=== PATIENT | female | born 1990 ===

== ENCOUNTER 2017-07-06 11:35 | Emergency (ER) | payer MEDICAID ==
[2017-07-06 11:46] VITALS: BP 108/66; PULSE 69; RESP 18; TEMP 98.3; O2SAT 100
--- NOTE | 2017-07-06 14:06 | C.PDOC ---
History Of Present Illness 26 y/o female presents to the ED complaining of a left ingrown toenail for the last 2-3 weeks. Patient has been soaking it in warm water with minimal relief. Pain is persistent, prompting her to come in for evaluation. She denies any drainage, fever, or chills. Time Seen by Provider: 07/06/17 13:08 Chief Complaint (Nursing): Lower Extremity Problem/Injury History Per: Patient History/Exam Limitations: no limitations Onset/Duration Of Symptoms: Days Current Symptoms Are (Timing): Still Present Past Medical History Reviewed: Historical Data, Nursing Documentation, Vital Signs Vital Signs: Last Vital Signs Temp 98.3 F 07/06/17 11:44 Pulse 69 07/06/17 11:44 Resp 18 07/06/17 11:44 BP 108/66 07/06/17 11:44 Pulse Ox 100 07/06/17 14:06 - Medical History PMH: No Chronic Diseases Other Surgeries: tubal ligation Family History: States: No Known Family Hx - Social History Hx Alcohol Use: No Hx Substance Use: No - Immunization History Hx Tetanus Toxoid Vaccination: Yes Hx Influenza Vaccination: Yes Hx Pneumococcal Vaccination: No Review Of Systems Except As Marked, All Systems Reviewed And Found Negative. Constitutional: Negative for: Fever, Chills Musculoskeletal: Positive for: Other (left ingrown toenail) Physical Exam - Physical Exam Appears: Non-toxic, No Acute Distress Skin: Warm, Dry Extremity: Capillary Refill (< 2 sec), No Deformity, Swelling (mild erythema and swelling around the medial part of left toenail, no drainage) Pulses: Left Dorsalis Pedis: Normal, Right Dorsalis Pedis: Normal ED Course And Treatment O2 Sat by Pulse Oximetry: 100 (RA) Pulse Ox Interpretation: Normal Medical Decision Making Medical Decision Making: Impression: Left ingrowing toenail Plan: Patient given initial dose of Keflex. Referred to podiatry clinic. Disposition Counseled Patient/Family Regarding: Diagnosis, Need For Followup, Rx Given - Disposition Referrals: Podiatry Clinic [Outside] [facility] [Outside] Disposition: HOME/ ROUTINE Disposition Time: 14:04 Condition: STABLE Additional Instructions: Follow up in Podiatry Clinic within 2-3 days. Return to ED if feel worse. 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 - Scribe Statement The provider has reviewed the documentation as recorded by the Scribe (Marisela Ford) All medical record entries made by the Scribe were at my direction and personally dictated by me. I have reviewed the chart and agree that the record accurately reflects my personal performance of the history, physical exam, medical decision making, and the department course for this patient. I have also personally directed, reviewed, and agree with the discharge instructions and disposition.
== END 2017-07-06 14:12 | disposition home or self-care (01) ==
LOC: C.ER 11:35
DX: L60.0 Ingrowing nail (principal)

== ENCOUNTER 2017-07-22 20:24 | Emergency (ER) | payer MEDICAID ==
--- NOTE | 2017-07-22 20:57 | C.PDOC ---
History Of Present Illness Patient sent to the ER by PMD for having a low hemoglobin in her recent blood work. Patient reports she has had a headache and some dizziness. Patient is currently speaking in complete sentences; denies chest pain, palpitations, or SOB. Time Seen by Provider: 07/22/17 20:56 Chief Complaint (Nursing): Abnormal Labs History Per: Patient History/Exam Limitations: no limitations Onset/Duration Of Symptoms: Hrs Current Symptoms Are (Timing): Still Present Severity: Moderate Pain Scale Rating Of: 4 Recent travel outside of the [place]: No Past Medical History Reviewed: Historical Data, Nursing Documentation, Vital Signs Vital Signs: Last Vital Signs Temp 98.4 F 07/22/17 20:34 Pulse 72 07/22/17 20:34 Resp 16 07/22/17 20:34 BP 118/81 07/22/17 20:34 Pulse Ox 100 07/22/17 21:08 Family History: States: No Known Family Hx - Social History Hx Alcohol Use: No Hx Substance Use: No - Immunization History Hx Tetanus Toxoid Vaccination: Yes Hx Influenza Vaccination: Yes Hx Pneumococcal Vaccination: No Review Of Systems Constitutional: Negative for: Fever, Chills Cardiovascular: Negative for: Chest Pain, Palpitations Respiratory: Negative for: Shortness of Breath Neurological: Positive for: Headache, Dizziness Physical Exam - Physical Exam Appears: Non-toxic, Other (Morbidly obese) Skin: Warm, Dry Head: Normacephalic Oral Mucosa: Moist Chest: Symmetrical, No Tenderness Cardiovascular: Rhythm Regular Respiratory: No Rales, No Rhonchi, No Wheezing Gastrointestinal/Abdominal: Soft, No Tenderness Neurological/Psych: Oriented x3 ED Course And Treatment - Laboratory Results Result Diagrams: 07/22/17 21:00 07/22/17 21:00 O2 Sat by Pulse Oximetry: 100 (Room air) Pulse Ox Interpretation: Normal Progress Note: Blood work and urinalysis ordered. Disposition Counseled Patient/Family Regarding: Studies Performed, Diagnosis, Need For Followup - Disposition Disposition: HOME/ ROUTINE Disposition Time: 20:56 Condition: FAIR Additional Instructions: Please follow up with your doctor Instructions: Anemia Caused by Low Iron, Adult (DC) Forms: [facility] (Zambian) - Clinical Impression Clinical Impression: Anemia - Scribe Statement The provider has reviewed the documentation as recorded by the Scribemanuel Costa All medical record entries made by the Scribe were at my direction and personally dictated by me. I have reviewed the chart and agree that the record accurately reflects my personal performance of the history, physical exam, medical decision making, and the department course for this patient. I have also personally directed, reviewed, and agree with the discharge instructions and disposition.
[2017-07-22 21:03] LABS: SQUAMOUS EPITHIAL 9 /hpf (0-5); URINE BACTERIA OCC (<OCC); URINE BILIRUBIN NEGATIVE (NEGATIVE); URINE BLOOD NEGATIVE (NEGATIVE); URINE CLARITY Hazy (Clear); URINE COLOR Yellow (YELLOW); URINE GLUCOSE (UA) NORMAL (Normal); URINE LEUKOCYTE ESTERASE TRACE Leu/uL (Negative); URINE PROTEIN NEGATIVE (NEGATIVE); URINE UROBILINOGEN NORMAL mg/dL (0.2-1.0)
[2017-07-22 21:16] LABS: BASO % 0.4 % (0.0-2.0); EOS # 0.1 K/uL (0.0-0.7); EOS % 1.7 % (0.0-4.0); HEMOGLOBIN 10.5 g/dL (11.0-16.0); LYMPH # 2.1 K/uL (1.0-4.3); LYMPH % 24.8 % (20.0-40.0); MEAN CELL VOLUME 70.8 fL (81.0-99.0); MEAN CORPUSCULAR HEMOGLOBIN 22.8 pg (27.0-31.0); MEAN CORPUSCULAR HGB CONC 32.2 g/dL (33.0-37.0); MEAN PLATELET VOLUME 9.8 fL (7.2-11.7); MONO # 0.7 K/uL (0.0-0.8); MONO % 7.8 % (0.0-10.0); NEUT # 5.5 K/uL (1.8-7.0); NEUT % 65.3 % (50.0-75.0); RBC 4.62 Mil/uL (3.80-5.20); WHITE BLOOD COUNT 8.4 K/uL (4.8-10.8)
[2017-07-22 21:24] LABS: INR 1.1; PROTHROMBIN TIME 11.6 SECONDS (9.7-12.2)
[2017-07-22 21:29] LABS: ALB/GLOB RATIO 1.2 (1.0-2.1); ALBUMIN 4.1 g/dL (3.5-5.0); ALT/SGPT 126 U/L (9-52); AST/SGOT 62 U/L (14-36); BLOOD UREA NITROGEN 11 mg/dL (7-17); CALCIUM 9.3 mg/dl (8.6-10.4); GFR AFRICAN-AMERICAN > 60; GFR NON-AFRICAN AMERICAN > 60
[2017-07-22 21:51] VITALS: BP 136/74; PULSE 78; RESP 18; TEMP 98; O2SAT 98
== END 2017-07-22 21:51 | disposition home or self-care (01) ==
LOC: C.ER 20:24
DX: D64.9 Anemia, unspecified (principal)